=== PATIENT | male | born 1995 | race Caucasian/White ===

== ENCOUNTER 2025-08-25 23:49 | Emergency (ER) | payer OTHER ==
[~2025-08-25] VITALS: Ht 177.8 cm; Wt 75.3 kg
[2025-08-26] MEDS ORDERED: Lidocaine 4% 1 Patch TOP ONE (00:15)
== END 2025-08-26 00:55 | disposition home or self-care (01) ==
LOC: ER 23:49
DX: M25.511 Pain in right shoulder (principal)
CPT/HCPCS: 73030; 99283-25; A9270

== ENCOUNTER 2025-09-19 06:07 | Emergency (ER) | payer OTHER ==
[~2025-09-19] VITALS: Ht 177.8 cm; Wt 75.3 kg
[2025-09-19] MEDS ORDERED: CEPH500 PO (07:31)
== END 2025-09-19 07:49 | disposition home or self-care (01) ==
LOC: ER 06:07
DX: S61.411A Laceration without foreign body of right hand, initial encounter (principal); L03.113 Cellulitis of right upper limb; X58.XXXA Exposure to other specified factors, initial encounter; F43.10 Post-traumatic stress disorder, unspecified; Z59.89 Other problems related to housing and economic circumstances; Z87.891 Personal history of nicotine dependence; Z79.2 Long term (current) use of antibiotics
CPT/HCPCS: 99283; A9270

== ENCOUNTER 2025-09-21 16:56 | Emergency (ER) | payer OTHER ==
[~2025-09-21] VITALS: Ht 180.3 cm; Wt 77.1 kg
[~2025-09-21 16:56] MED LIST: CEPH500 PO
[2025-09-21] MEDS ORDERED: LORA.5 PO (17:15)
== END 2025-09-21 17:51 | disposition home or self-care (01) ==
LOC: ER 16:56
DX: F41.0 Panic disorder [episodic paroxysmal anxiety] (principal); F43.10 Post-traumatic stress disorder, unspecified; Z79.2 Long term (current) use of antibiotics; Z87.891 Personal history of nicotine dependence
CPT/HCPCS: 99281; A9270